=== PATIENT | male | born 1970 | race Caucasian/White ===

== ENCOUNTER 2017-02-09 16:56 | Emergency (ER) | payer MEDICAID ==
[2017-02-09] MEDS ORDERED: ACETAMINOPHEN 325 MG TAB PO ONE (17:27)
--- NOTE | 2017-02-09 17:27 | Emergency Department Record ---
History of Present Illness - General Chief Complaint: Syncope Stated Complaint: SYNCOPY AND LACERATION TO EYE Time Seen by Provider: 02/09/17 17:09 Source: Patient Mode of Arrival: Ambulatory Limitations: No limitations - History of Present Illness Initial Comments: The patient is here due to possibly passing out 10 hours ago when he woke up. He states he woke up at 7:30 am today and has had a URI recently with a lot of coughing. He then sat at the edge of the bed and had a coughing fit. It went for many seconds and then stopped. He then felt lightheaded and the next thing he remembers was waking up on the floor. He did sustain a small laceration to his R eyebrow and bruised his R jaw. He denied any CP or SOB or SOTO prior to the episode or since. He has no hx of CP with exertion, or any cardiac issues, or syncope. There has been no reported nausea, vomiting, or diarrhea. MD Complaint: Loss of consciousness Onset/Timin -: Hour(s) Injuries Sustained Associated with Event: Head, RLE Current Symptoms: Headache Treatments Prior to Arrival: None - Shantanu Coma Scale Eye Response: (4) Open spontaneously Motor Response: (6) Obeys commands Verbal Response: (5) Oriented Shantanu Total: 15 - Related Data Home Medications Medication Instructions Recorded Confirmed Last Taken Allopurinol 300 mg PO QD tab 10/10/16 02/09/17 02/09/17 Alprazolam [Xanax] 2 mg PO DAILY tab 10/10/16 02/09/17 02/09/17 Citalopram Hydrobromide [Celexa] 40 mg PO QD tab 10/10/16 02/09/17 02/09/17 Lisinopril 2.5 mg PO QD tab 10/10/16 02/09/17 02/09/17 Metformin HCl 1,000 mg PO DAILY tab 10/10/16 02/09/17 02/09/17 Metoprolol Tartrate 50 mg PO DAILY tab 10/10/16 02/09/17 02/09/17 [place]-3 Fatty Acids [Fish Oil] 300 mg PO QD cap 10/10/16 02/09/17 02/09/17 Rosuvastatin Calcium [Crestor] 40 mg PO QD #2 tab 10/10/16 02/09/17 02/09/17 Trazodone HCl 300 mg PO BID tab 10/10/16 02/09/17 02/09/17 Previous Rx's Medication Instructions Recorded Azithromycin [Zithromax] 250 mg PO ASDIR #6 tab 02/09/17 Allergies Allergy/AdvReac Type Severity Reaction Status Date / Time Penicillins Allergy Mild rash Verified 02/09/17 17:12 Travel Screening - Travel/Exposure Within Last 30 Days Have you traveled within the last 30 days?: No - Travel/Exposure Within Last Year Have you traveled outside the [place] in the last year?: No - Additonal Travel Details Have you been exposed to anyone with a communicable illness?: No - Travel Symptoms Symptom Screening: None Review of Systems Constitutional: Denies: Chills, Fever Eyes: Denies: Eye discharge ENT: Denies: Congestion Respiratory: Reports: Cough. Denies: Dyspnea Cardiovascular: Denies: Arrhythmia, Chest pain Past Medical History - SOCIAL HISTORY Smoking Status: Never smoker Alcohol Use: Occassional Drug Use: None - RESPIRATORY Hx Respiratory Disorders: No - CARDIOVASCULAR Hx Hypertension: Yes Family Medical History Any Significant Family History?: No Hx Heart Disease: Father Physical Exam - General General Appearance: Alert, Oriented x3, Cooperative, No acute distress - Head Head exam: Atraumatic, Normocephalic, Normal inspection - Eye Eye exam: PERRL, EOMI. negative: Normal appearance (There is a 1.5 well approximated lac to the medial R eyebrow area.) - ENT ENT exam: Normal exam, Mucous membranes moist, Normal external ear exam, Normal orophraynx, TM's normal bilaterally Throat exam: Normal inspection. negative: Tonsillar erythema, Tonsillar exudate - Neck Neck exam: Normal inspection, Full ROM. negative: Tenderness - Respiratory Respiratory exam: Normal lung sounds bilaterally. negative: Respiratory distress - Cardiovascular Cardiovascular Exam: Regular rate, Normal rhythm, Normal heart sounds - GI/Abdominal GI/Abdominal exam: Soft, Normal bowel sounds. negative: Tenderness - Extremities Extremities exam: Normal inspection, Full ROM, Normal capillary refill. negative: Tenderness - Neurological Neurological exam: Alert, Normal gait, Oriented X3. negative: Abnormal gait, Motor sensory deficit Course Vital Signs 02/09/17 16:57 Temperature 98.2 F Pulse Rate 78 Respiratory 16 Rate Blood Pressure 143/73 Pulse Ox 96 - Reevaluation(s) Reevaluation #1: The patient is doing very well. He denies any dizziness or lightheadedness or any CP or SOB. I explained to him that his workup is all WNL's and that the EKG and lab work do not demonstrate a reason for the syncope. Due to the fact the patient has some cardiac risk factors and did have a true syncopal event even though it seems to have been precipitated by sitting up and coughing, I did recommend hospital admission. I explained to the patient that we would monitor his heart overnight and perform an echo in the morning to be sure there was no cardiac cause for the syncope. After the discussion about his condition and the need to stay overnight the patient did refuse the plan for the admission to the hospital. He understands that by NOT staying he could go home and have an MA, recurrent syncope and even have a stroke, become disabled and could . He understands and accepts the risks and was told to return to the ER for any problems or recurrent symptoms. 02/09/17 18:22 Medical Decision Making - Data Complexity MDM Data: Labs Ordered and/or Reviewed, X-Ray Ordered and/or Reviewed, EKG Ordered and/or Reviewed - Lab Data Result diagrams: 02/09/17 17:32 02/09/17 17:32 - EKG Data -: EKG Interpreted by Me EKG: No Acute Changes, Normal EKG - Radiology Data Radiology results: Report reviewed (CXR: Neg.) Disposition Disposition: Discharge Clinical Impression: Cough syncope Disposition: Home, Self-Care Condition: (1) Good Instructions: Syncope (ED) Additional Instructions: Please see your PCP early next week for further evaluation. Please return to the ER for any recurrent passing out symptoms or any chest pain, trouble breathing or sweating. Please take the Zithromax as directed. Prescriptions: Azithromycin [Zithromax] 250 mg PO ASDIR #6 tab Forms: Patient Portal Access Time of Disposition: 18:28
[2017-02-09 17:48] LABS: BASO % 0.1 % (0-6); EOS % 1.5 % (0-6); GRAN % 51.4 % (47-80); HEMATOCRIT 40.7 % (42.0-52.0); HEMOGLOBIN 14.3 gm/dl (14.0-18.0); LYMPH % 34.9 % (16-45); MEAN CELL VOLUME 86.6 fl (81-97); MEAN CORPUSCULAR HEMOGLOBIN 30.4 pg (27-33); MEAN CORPUSCULAR HGB CONC 35.1 g/dl (32-36); MONO % 12.1 % (0-9); PLATELET COUNT 335 K/uL (130-400); RED CELL DISTRIBUTION WIDTH 12.6 % (11.5-14.5); WHITE BLOOD COUNT W/O DIFF 7.2 K/uL (4.2-12.2)
[2017-02-09 17:59] LABS: ANION GAP 6.7 (7-16); BLOOD UREA NITROGEN 10 mg/dL (9-20); CARBON DIOXIDE 25.3 mmol/L (22-30); CREATINE PHOSPHOKINASE 286 U/L (55-170); EST GLOMERULAR FILTRATION RATE > 60 ml/min; GLUCOSE,RANDOM 117 mg/dL (70-110)
[2017-02-09 18:11] LABS: CKMB 1.4 ug/L (0-6); TROPONIN I < 0.012 ng/mL (0.00-0.034)
--- NOTE | 2017-02-13 11:00 | RADIOLOGY REPORT ---
DATE: 02/09/2017. EXAM: TWO VIEWS OF THE CHEST. HISTORY: Cough. TECHNIQUE: Two views of the chest were provided along with a comparison study dated 01/30/2017. FINDINGS: The cardiomediastinal silhouette is within normal limits for size and contour. The luis angel appear unremarkable. There is no radiographic evidence of a focal infiltrate, pleural effusion, or pneumothorax. IMPRESSION: NO RADIOGRAPHIC EVIDENCE OF AN ACUTE INTRATHORACIC PROCESS. JOB NUMBER: [id number] MTDD
== END 2017-02-09 18:39 | disposition home or self-care (01) ==
LOC: ER 16:56
DX: R55 Syncope and collapse (principal); S00.83XA Contusion of other part of head, initial encounter; R05 Cough; W06.XXXA Fall from bed, initial encounter; I10 Essential (primary) hypertension
CPT/HCPCS: 71020; 80048; 82550; 82553; 84484; 85025; 93005; 93010; 99284